=== PATIENT | female | born 1970 | race Caucasian/White ===

== ENCOUNTER 2018-08-07 22:06 | Emergency (ER) | payer MEDICAID ==
[~2018-08-07] VITALS: Ht 175.3 cm; Wt 74.8 kg
[~2018-08-07 22:06] MED LIST: BUPR-40 PO; CELE200C PO; ESCI20TA PO; HYDR500T13 PO; META-24 PO; PROVIGIL PO; ZALE10CA44 PO
[2018-08-08 00:19] LABS: Basophils # (auto) 0 uL; Basophils % (auto) 0.3 % (0.0-2.0); Eosinophils # (auto) 0.1 uL; Eosinophils % (auto) 0.4 % (0.0-7.0); Hematocrit 43.7 % (36.0-46.0); Hemoglobin 14.3 g/dL (12.2-16.2); Lymphocytes # (auto) 2.6 uL; Lymphocytes % (auto) 20.8 % (10.0-50.0); Mean Corpuscular Hemoglobin 27.7 pg (28.0-32.0); Mean Corpuscular Hgb Conc. 32.8 g/dL (32.0-36.0); Mean Corpuscular Volume 84.4 fL (80.0-100.0); Monocytes # (auto) 0.7 uL; Monocytes % (auto) 5.6 % (0.0-12.0); Neutrophils # (auto) 9.1 uL; Neutrophils % (auto) 72.9 % (37.0-80.0); Nucleated Red Blood Cells % 0.1 %; Platelet Count (auto) 215 10^3/uL (140-450); Red Blood Cells 5.17 10^6/uL (4.0-5.20); Red Cell Distribution Width 12.9 % (11.8-14.3); White Blood Cell 12.5 10^3/uL (4.4-10.8)
[2018-08-08 00:32] LABS: Chloride 98 mmol/L (98-107); Potassium 3.3 mmol/L (3.5-5.1); Sodium 132 mmol/L (136-145)
[2018-08-08 00:35] LABS: Alanine Aminotransferase 46 U/L (13-56); Albumin 3.6 g/dL (3.4-5.0); Anion Gap 12 (5-15); Aspartate Aminotransferase 25 U/L (15-37); BUN/Creatinine Ratio 9.8; Blood Alcohol < 3.0 mg/dL (0-5); Blood Urea Nitrogen 9 mg/dL (7-18); Calcium 8.4 mg/dL (8.5-10.1); Carbon Dioxide 22 mmol/L (21-32); GFR African American 84 mL/min; GFR Non-African American 70 mL/min; Glucose 229 mg/dL (74-106); Magnesium 1.5 mg/dL (1.6-2.6)
[2018-08-08 00:38] LABS: Alkaline Phosphatase 109 U/L (45-117); Bilirubin, Total 0.6 mg/dL (0.2-1.0)
[2018-08-08 01:51] LABS: Urine Bacteria FEW /hpf (None Seen); Urine Blood 1+ /uL (Negative); Urine Mucus FEW (None Seen); Urine Specific Gravity 1.011 (1.001-1.035); Urine WBC 40 /hpf (0 - 5)
[2018-08-08 08:22] VITALS: BP 144/93
[2018-08-08] MEDS ORDERED: SODIUM CHLORIDE 0.9% 500 ML IV ONE (08:30)
[2018-08-08] MEDS ORDERED: cefTRIAXone 1GM/50ML D5W 50 ML IV ONE ×2 (08:30→08:48)
[2018-08-08] MEDS ORDERED: HYDROcodone-ACET 10/325MG TAB PO ONE (09:15)
[2018-08-08] MEDS ORDERED: POTASSIUM CHL 20 Meq TABLET PO ONE (09:30)
[2018-08-08 09:35] LABS: Alcohol, Urine < 3.0 mg/dL (0-5); Amphetamine Screen, Urine NEGATIVE (NEGATIVE); Barbiturate Scree,Urine NEGATIVE (NEGATIVE); Benzodiazephine Screen, Urine NEGATIVE (NEGATIVE); Cannabinoid Screen, Urine NEGATIVE (NEGATIVE); Cocaine Screen, Urine NEGATIVE (NEGATIVE); Opiate Scree,Urine POSITIVE (NEGATIVE); Phencyclidine Screen, Urine NEGATIVE (NEGATIVE)
== END 2018-08-08 09:55 | disposition home or self-care (01) ==
LOC: ER 22:06
DX: R53.1 Weakness (principal); N39.0 Urinary tract infection, site not specified; E11.65 Type 2 diabetes mellitus with hyperglycemia; R55 Syncope and collapse; E87.6 Hypokalemia; J45.909 Unspecified asthma, uncomplicated
CPT/HCPCS: 36415; 70450; 80053; 80307; 80320; 81001; 83735; 84484; 85025; 93005; 96365; 99284; J0696; J7030

== ENCOUNTER 2019-08-21 13:28 | Emergency (ER) | payer MEDICAID, MEDICARE ==
[~2019-08-21] VITALS: Ht 175.3 cm; Wt 74.8 kg
[2019-08-21] MEDS ORDERED: KETOROLAC TROMETH 60MG/2ML VIAL IM ONE (14:30)
[2019-08-21 15:22] VITALS: BP 131/87
== END 2019-08-21 15:30 | disposition home or self-care (01) ==
LOC: ER 13:30
DX: M25.522 Pain in left elbow (principal); J45.909 Unspecified asthma, uncomplicated; Z90.89 Acquired absence of other organs; Z90.710 Acquired absence of both cervix and uterus; Z79.899 Other long term (current) drug therapy
CPT/HCPCS: 73080; 96372; 99283; J1885